=== PATIENT | male | born 1980 | race Caucasian/White ===

== ENCOUNTER 2018-04-24 15:07 | Emergency (ER) | payer OTHER ==
[2016-08-21 23:46] VITALS: BP 132/86
[2018-04-24] MEDS ORDERED: 0.9 % SODIUM CHLORIDE 1,000 ML IV ONE (15:31)
[2018-04-24] MEDS ORDERED: ONDANSETRON HCL/PF 4 MG/ 2ML VIAL ONE (15:31)
[2018-04-28 11:53] LABS: MEAN CORPUSCULAR HEMOGLOBIN 32.5 pg (28.0-34.0); MEAN CORPUSCULAR VOLUME 92.2 fl (80.0-100.0); eGFR (African) > 60; eGFR (Non-African) > 60
[2018-04-28 11:54] LABS: BASOPHILS % 1.2 (0.0-1.5); EOSINOPHILS % 3.2 % (0.0-6.8); MONOCYTES % 7.8 % (0.0-11.0); NEUTROPHILS # 8.4 # k/uL (1.4-7.7)
[2018-04-28 12:41] LABS: APPEARANCE,URINE CLOUDY (CLEAR); COLOR,URINE AMBER (YELLOW); OCCULT BLOOD,URINE 2+ (NEGATIVE); PH URINE 5.5 (5.0 - 8.0); UROBILINOGEN URINE 0.2 Eu (0.2-1.0)
== END 2018-04-24 16:55 ==
LOC: ED 15:07
DX: E86.0 Dehydration (principal)
CPT/HCPCS: 80053; 81002; 85025; J2405; J7030; 96360; 96361; 96375; 99284; S1016

== ENCOUNTER 2018-06-08 09:58 | Emergency (ER) | payer OTHER ==
--- NOTE | 2018-06-08 10:03 | ED Physician Documentation ---
General Adult - HISTORIAN Historian: patient - HPI Stated Complaint: cough up blood x 1 this am Chief Complaint: General Adult Onset: hours (3) Timing: gone now Severity: mild Further Comments: yes (states when he coughed this am he noted some blood in his sputum. No fever. No weakness. No chills. No bleeding in other areas. No blood thinners. No pain) - ROS CONST: no problems EYES/ENT: none CVS/RESP: none GI/: none MS/SKIN/LYMPH: none NEURO/PSYCH: denies: headache, fainting, dizziness - PAST HX Past History: none Other History: none Surgeries/Procedures: none Allergies/Adverse Reactions: Allergies Allergy/AdvReac Type Severity Reaction Status Date / Time No Known Drug Allergies Allergy Verified 06/08/18 10:16 - SOCIAL HX Smoking History: cigarettes Alcohol Use: none Drug Use: none - FAMILY HX Family History: No - VITAL SIGNS Vital Signs: Vital Signs Temp Pulse Resp BP Pulse Ox 132/86 08/21/16 23:35 - REVIEWED ASSESSMENTS Nursing Assessment Reviewed: Yes Vitals Reviewed: Yes ED Results Lab/Radiology - Radiology Radiology Impressions: Examination: PA and lateral chest. History: Evaluate lung gama. CXR, COUGHING UP BLOOD TODAY, NO CHEST PAIN, NO KNOWN INJURY (Hx) Comparison exam: None provided. Findings: PA lateral chest demonstrate a normal cardiac and mediastinal silhouette. No focal infiltrate. No blunting of the costophrenic margins. Acromioclavicular joint degenerative spurring. Impression: No acute pulmonary process. Electronically signed on Jun 08, 2018 11:10:20 AM CDT by: Santos Beyer General Adult Physical Exam - PHYSICAL EXAM GENERAL APPEARANCE: no distress EENT: eye inspection normal, ENT inspection normal NECK: normal inspection RESPIRATORY: no resp distress, chest non-tender, breath sounds normal CVS: reg rate & rhythm, heart sounds normal, equal pulses ABDOMEN: soft, normal bowel sounds, no distension SKIN: warm/dry, normal color EXTREMITIES: non-tender, normal range of motion, no evidence of injury, no edema NEURO: oriented X3, CN's nml as tested, motor nml, sensation nml Discharge Clincal Impression: Coughing up blood Referrals: Smith Cantu MD [Primary Care Provider] - 2 Days Additional Instructions: 1. STOP SMOKING 2. Warm salt water gargles 3. Increase fluid intake 4. Follow up with PCP in 2-4 days 5. Return to ER for any concerns Condition: Stable Disposition: 01 HOME, SELF-CARE Decision to Admit: NO Date of Decison to Admit: 06/08/18 Decision Time: 11:21
[2018-06-08 11:29] VITALS: BP 130/68
--- NOTE | 2018-06-08 18:14 | Diagnostic Imaging Report ---
XOCHITL FISHER [facility] [address] [facility] [address], [place]. [address] Report Submission Date: Jun 08, 2018 11:10:20 AM CDT Patient Study Name: KISHAN WESTON Date: Jun 08, 2018 10:31:39 AM CDT Modality Type: DX Gender: M Description: CHEST : 76 Institution: [facility] Physician: XOCHITL FISHER Examination: PA and lateral chest. History: Evaluate lung gama. CXR, COUGHING UP BLOOD TODAY, NO CHEST PAIN, NO KNOWN INJURY (Hx) Comparison exam: None provided. Findings: PA lateral chest demonstrate a normal cardiac and mediastinal silhouette. No focal infiltrate. No blunting of the costophrenic margins. Acromioclavicular joint degenerative spurring. Impression: No acute pulmonary process. Electronically signed on Jun 08, 2018 11:10:20 AM CDT by: Santos ANGEL
== END 2018-06-08 11:25 | disposition home or self-care (01) ==
LOC: ED 09:58
DX: R04.2 Hemoptysis (principal)
CPT/HCPCS: 71046; 99283

== ENCOUNTER 2018-11-20 10:59 | Emergency (ER) | payer OTHER ==
[2018-11-20] MEDS ORDERED: methylPREDNISolone SOD SUCC 125 MG/2 ML VIAL IM ONE (11:19)
--- NOTE | 2018-11-20 11:24 | ED Physician Documentation ---
Upper Respiratory Symptoms - HISTORIAN Historian: patient - HPI Stated Complaint: Cough, congestion Chief Complaint: Cough/ Upper Respiratory Additional Information: Patient presents to ED with a 2 day history of cough and sinus congestion. He denies fever, chills, night sweats or shortness of breath. Onset: days ago (2) Duration: constant Context: denies: recent foreign travel Severity: moderate Associated Symptoms: runny nose, sinus pain, sinus drainage, headache. denies: fever, chills, chest pain, shortness of breath - ROS CONST/EYES: denies: weakness CVS/RESP: denies: chest pain, shortness of breath LYMPH: denies: swollen glands GI/: denies: vomiting, nausea NEURO/PSYCH: denies: dizziness MS/SKIN: denies: muscle aches - PAST HX Lung Disease: none PE Risk Factors: hypertension Other History: denies: cancer chemo Surgeries/Procedures: denies: none Allergies/Adverse Reactions: Allergies Allergy/AdvReac Type Severity Reaction Status Date / Time No Known Drug Allergies Allergy Verified 11/20/18 11:15 Home Medications: Ambulatory Orders Medication Instructions Recorded Levofloxacin [Levaquin] 500 mg PO DAILY #5 tablet 11/20/18 predniSONE [Deltasone] 20 mg PO DIRECTED #6 tablet 11/20/18 - SOCIAL HX Smoking History: non-smoker, quit less than 1 year Alcohol Use: none Drug Use: none - FAMILY HX Family History: none - VITAL SIGNS Vital Signs: Vital Signs Temp Pulse Resp BP Pulse Ox 98.6 F 87 19 141/109 98 11/20/18 11:10 11/20/18 11:10 11/20/18 11:10 11/20/18 11:10 11/20/18 11:10 - REVIEWED ASSESSMENTS Nursing Assessment Reviewed: Yes Vitals Reviewed: Yes Upper Respiratory Symptoms - EXAM General Appearance: no acute distress, alert EENT: pain over sinuses, rhinorrhea, pharynx nml Neck: normal inspection Respiratory: no resp. distress, breath sounds nml Abdomen: non-tender CVS: reg rate & rhythm, heart sounds normal Skin: color nml, no rash, warm,dry Extremities: non-tender, no edema Neuro/Psych: oriented x3, mood/affect nml Discharge Clincal Impression: Upper respiratory infection, acute Referrals: Dixie Ruiz MD [Primary Care Provider] - 2 Days Additional Instructions: 1. Tylenol and/or Ibuprofen as needed for fever or pain. You may take these medications together at the same time for better pain control. 2. Add a daily antihistamine such as Claritin, Zyrtec, Xyxal, Allergra. Avoid taking the D version of these medications as they contain sudafed and will increase your blood pressure 3 Take Mucinex or Robutussin (both contain the same ingredient) to help with mucous thinning allowing you to clear your mucous easier. While taking these medications you must drink at least 64 ounces of water daily. 4. Use a cool mist humidifier with sleep 5. Afrin may be used for nasal congestion but do not use more than 3 days in a row. Nasal irrigation or nasal saline spray is helpful also. 6. Follow up with PCP within 3 days 7. Return to the ED with fever >102.0, difficulty breathing, chest pain or any new or worsening symptoms. Condition: Stable Disposition: 01 HOME, SELF-CARE Decision to Admit: NO Date of Decison to Admit: 11/20/18 Decision Time: 11:31
[2018-11-20 11:51] VITALS: BP 132/88
== END 2018-11-20 11:50 | disposition home or self-care (01) ==
LOC: ED 10:59
DX: J06.9 Acute upper respiratory infection, unspecified (principal); Z87.891 Personal history of nicotine dependence
CPT/HCPCS: 96372; 99282; 99284; J2930

== ENCOUNTER 2018-12-31 05:10 | Emergency (ER) | payer OTHER ==
[2018-12-31 05:23] VITALS: BP 124/87
--- NOTE | 2018-12-31 05:41 | ED Physician Documentation ---
General Adult - HPI Stated Complaint: COUGH Chief Complaint: General Adult Onset: days ago Timing: still present Severity: moderate Further Comments: yes (Pt is a 38 yo male with cough/congestion x 3 days. Pt had a sore throat earlier in course of illness. No n/v/diarrhea/fever.) - ROS CONST: no problems EYES/ENT: sore throat CVS/RESP: cough GI/: none MS/SKIN/LYMPH: none - PAST HX Past History: hypertension Allergies/Adverse Reactions: Allergies Allergy/AdvReac Type Severity Reaction Status Date / Time No Known Drug Allergies Allergy Verified 12/31/18 05:24 - SOCIAL HX Smoking History: quit greater than 1 year - FAMILY HX Family History: No - VITAL SIGNS Vital Signs: Vital Signs Temp Pulse Resp BP Pulse Ox 97.6 F 98 H 20 124/87 98 12/31/18 05:20 12/31/18 05:20 12/31/18 05:20 12/31/18 05:20 12/31/18 05:20 - REVIEWED ASSESSMENTS Nursing Assessment Reviewed: Yes Vitals Reviewed: Yes Progress - Progress Progress: Azithromycin 500 mg po in ER Sollu-medrol 125 mg IM in ER. Rx Azithromycin 250 mg. Take one by mouth once daily for 5 days. Rx Prednisone 50 mg. Take one by mouth once daily for 5 days. Nasal Washes 1-2 times daily. General Adult Physical Exam - PHYSICAL EXAM GENERAL APPEARANCE: mild distress EENT: eye inspection normal, ENT inspection normal, pharyngeal erythema NECK: normal inspection, supple RESPIRATORY: no resp distress, breath sounds normal CVS: reg rate & rhythm, heart sounds normal ABDOMEN: soft, no organomegaly, normal bowel sounds BACK: normal inspection SKIN: warm/dry, normal color EXTREMITIES: non-tender, normal range of motion, no evidence of injury NEURO: oriented X3, motor nml, sensation nml Discharge Clincal Impression: cough/congestion URI (upper respiratory infection) Qualifiers: URI type: unspecified URI Qualified Code(s): J06.9 - Acute upper respiratory infection, unspecified Referrals: Dixie Ruiz MD [Primary Care Provider] - Condition: Good Disposition: 01 HOME, SELF-CARE Decision to Admit: NO Decision Time: 06:26
[2018-12-31] MEDS ORDERED: methylPREDNISolone SOD SUCC 125 MG/2 ML VIAL IM ONE (05:45)
[2018-12-31] MEDS ORDERED: AZITHROMYCIN 250 MG TABLET PO ONE (06:03)
== END 2018-12-31 06:30 | disposition home or self-care (01) ==
LOC: ED 05:10
DX: J06.9 Acute upper respiratory infection, unspecified (principal); R05 Cough; R09.81 Nasal congestion; Z87.891 Personal history of nicotine dependence
CPT/HCPCS: 96372; 99283; J2930

== ENCOUNTER 2019-02-06 10:00 | Outpatient (CLI) | payer OTHER ==
[2019-02-02 16:28] VITALS: BP 154/111
[2019-02-06 11:02] LABS: eGFR (Non-African) > 60
[2019-02-06 11:03] LABS: BASOPHILS % 4.1 (0.0-1.5); MEAN CORPUSCULAR HEMOGLOBIN 31.9 pg (28.0-34.0); MONOCYTES % 10.1 % (0.0-11.0); NEUTROPHILS # 3.9 # k/uL (1.4-7.7)
--- NOTE | 2019-02-06 12:53 | Diagnostic Imaging Report ---
KEESHA MCDONALD [facility] [address] [facility].[address] [address] Report Submission Date: Feb 06, 2019 12:52:09 PM CDT Patient Study Name: KISHAN WESTON Date: Feb 06, 2019 10:24:29 AM CDT Modality Type: DX Gender: M Description: L SPINE 2 OR 3 VIEWS : 76 Institution: [facility] Physician: KEESHA MCDONALD Examination: Plain film lumbar spine History: Chronic back pain. hx of physical lifting at work. Findings: 3 views of the lumbar spine demonstrate normal height. No anterior compression. Few scattered osteophytes. Mild L5-S1 disc space narrowing. No soft tissue abnormalities. Impression: Mild degenerative changes. No vertebral body compression deformity. If patient is experiencing neurologic symptoms, consider obtaining MRI to further evaluate. Electronically signed on Feb 06, 2019 12:52:09 PM CDT by: Santos ANGEL
== END 2019-02-06 10:03 ==
LOC: LAB 10:00
PROVIDERS: ATTEND Family Medicine
DX: M54.42 Lumbago with sciatica, left side (principal); G62.9 Polyneuropathy, unspecified
CPT/HCPCS: 36415; 72100; 80053; 82607; 82746; 84443; 85025

== ENCOUNTER 2019-02-15 09:22 | Emergency (ER) | payer OTHER ==
[2019-02-15 09:39] VITALS: BP 142/100
[2019-02-15] MEDS ORDERED: methylPREDNISolone SOD SUCC 125 MG/2 ML VIAL IM ONE (09:49)
[2019-02-15] MEDS ORDERED: KETOROLAC TROMETHAMINE 60 MG/2 ML VIAL IM ONE (09:49)
--- NOTE | 2019-02-15 09:53 | ED Physician Documentation ---
Low Back Pain - HISTORIAN Historian: patient - HPI Stated Complaint: Back pain Chief Complaint: Low Back Pain/ Injury Additional Information: Patient presents to ED with ongoing low back pain with radiation to right thigh. Patient rates his pain 08/17. He has seen Dr. Ruiz and has an ortho appointment on February 27. An MRI was scheduled by Dr. Ruiz, however, insurance did not approve it. Patient denies loss of bowel or bladder control. History: back pain Onset: days ago (14) Duration: continues in ED Recent Injury: No Context: bending, other (standing) Where: work Severity: severe Quality: burning, sharp, similar- prior back pain Associated Symptoms: denies: fever, nausea, vomiting Worsened By:: upright position Relieved By: supine, remaining still - ROS CONST: no problems CVS/RESP: none EYES/ENT: none MS/SKIN/LYMPH: none Neuro/Psych: none GI/: denies: abdominal pain - PAST HX Past History: back pain Surgeries/Procedures: none Allergies/Adverse Reactions: Allergies Allergy/AdvReac Type Severity Reaction Status Date / Time No Known Drug Allergies Allergy Verified 02/02/19 14:42 Home Medications: Ambulatory Orders Medication Instructions Recorded Baclofen 10 mg PO BID PRN #30 tablet 02/15/19 predniSONE [Deltasone] 20 mg PO DIRECTED #26 tablet 02/15/19 - SOCIAL HX Smoking History: non-smoker Alcohol Use: none Drug Use: none - FAMILY HX Family History: none - VITAL SIGNS Vital Signs: Vital Signs Temp Pulse Resp BP Pulse Ox 92 H 15 142/100 97 02/15/19 12:00 02/15/19 12:00 02/15/19 12:00 02/15/19 12:00 - REVIEWED ASSESSMENTS Nursing Assessment Reviewed: Yes Vitals Reviewed: Yes ED Results Lab/Radiology - Radiology Radiology Impressions: Report Submission Date: Feb 15, 2019 11:30:20 AM CDT Patient Study Name: KISHAN WESTON Date: Feb 15, 2019 10:29:25 AM CDT Modality Type: CT\SR Gender: M Description: CT L-SPINE W/O CONTRAS : 76 Institution: [facility] Physician: JESÚS WALSH EXAMINATION: CT L-SPINE W/O CONTRAS HISTORY: LOW BACK PAIN, RADIATING TO RT LEG. PT STATES PAIN HAS BEEN GOING ON FOR SEVERAL MONTHS AND HAS WORSENED IN THE LAST MONTH TECHNIQUE: CT of the lumbar spine was performed without contrast according to standard protocol. COMPARISON: None FINDINGS: The alignment is normal. Vertebral bodies are normal in height without evidence of acute fracture. There is mild intervertebral disc space narrowing at L5-S1. There is minimal atherosclerosis of the aorta. L1-L2: There is no disc bulge. There is no spinal canal stenosis. There is no facet osteoarthritis. There is no neural foraminal stenosis. L2-L3: There is no disc bulge. There is no spinal canal stenosis. There is no facet osteoarthritis. There is no neural foraminal stenosis. L3-L4: Minimal disc bulge. There is no spinal canal stenosis. There is no facet osteoarthritis. There is no neural foraminal stenosis. L4-L5: Mild disc bulge, asymmetric to the left. There is no spinal canal stenosis. There is no facet osteoarthritis. There is mild, left greater than right, neural foraminal stenosis. L5-S1: Posterior disc osteophyte complex. There is no spinal canal stenosis. There is mild facet osteoarthritis. There is moderate neural foraminal stenosis. IMPRESSION: 1. No evidence of acute fracture in the lumbar spine. 2. Lumbar degenerative disc and joint disease as described above. Electronically signed on Feb 15, 2019 11:30:20 AM CDT by: Jc Nickerson - Orders Orders: ED Orders Category Date Time Status CT L-SPINE W/O CONTRAST Stat Exams 02/15/19 Completed Ketorolac Tromethamine [Toradol] Med 02/15/19 09:49 Discontinued 60 mg IM NOW ONE methylPREDNISolone SOD SUCC [Solu-MEDROL] Med 02/15/19 09:49 Discontinued 125 mg IM NOW ONE Low Back Pain/Injury - Physical Exam General Appearance: no acute distress, alert EENT: JERALD Neck: non-tender, painless ROM Resp/CVS: chest non-tender, breath sounds nml, heart sounds nml, no resp. distress, reg. rate & rhythm Abdomen: non-tender Back: vertebral point-tendernes (L4-S1) Straight Leg Raising: Positive Right Neuro/Psych: oriented x3, motor nml Skin: warm/dry Extremities: non-tender, normal range of motion, no edema Discharge Clincal Impression: Lumbar disc disease with radiculopathy Prescriptions: Baclofen 10 mg PO BID PRN #30 tablet PRN Reason: muscle spasm/back pain predniSONE [Deltasone] 20 mg PO DIRECTED #26 tablet Referrals: Dixie Ruiz MD [Primary Care Provider] - 2 Days Additional Instructions: 1. Start Prednsione tomorrow. 2. Take muscle relaxers as needed for pain/spasms. This medication will make you drowsy. 3. Follow up with Dr. Ruiz within 1 week 4. Follow up with Ortho as scheduled on February 27, 2019 5. Return to ER for new or worsening symptoms Condition: Stable Decision to Admit: NO Date of Decison to Admit: 02/15/19 Decision Time: 11:40
--- NOTE | 2019-02-15 13:15 | Diagnostic Imaging Report ---
<p>Your browser does not support iframes.</p> JESÚS WALSH [facility] [address] [facility] [address] [place], [place]. [address] Report Submission Date: Feb 15, 2019 11:30:20 AM CDT Patient Study Name: KISHAN WESTON Date: Feb 15, 2019 10:29:25 AM CDT Modality Type: CT\SR Gender: M Description: CT L-SPINE W/O CONTRAS : 76 Institution: [facility] Physician: JESÚS WALSH EXAMINATION: CT L-SPINE W/O CONTRAS HISTORY: LOW BACK PAIN, RADIATING TO RT LEG. PT STATES PAIN HAS BEEN GOING ON FOR SEVERAL MONTHS AND HAS WORSENED IN THE LAST MONTH TECHNIQUE: CT of the lumbar spine was performed without contrast according to standard protocol. COMPARISON: None FINDINGS: The alignment is normal. Vertebral bodies are normal in height without evidence of acute fracture. There is mild intervertebral disc space narrowing at L5-S1. There is minimal atherosclerosis of the aorta. L1-L2: There is no disc bulge. There is no spinal canal stenosis. There is no facet osteoarthritis. There is no neural foraminal stenosis. L2-L3: There is no disc bulge. There is no spinal canal stenosis. There is no facet osteoarthritis. There is no neural foraminal stenosis. L3-L4: Minimal disc bulge. There is no spinal canal stenosis. There is no facet osteoarthritis. There is no neural foraminal stenosis. L4-L5: Mild disc bulge, asymmetric to the left. There is no spinal canal stenosis. There is no facet osteoarthritis. There is mild, left greater than right, neural foraminal stenosis. L5-S1: Posterior disc osteophyte complex. There is no spinal canal stenosis. There is mild facet osteoarthritis. There is moderate neural foraminal stenosis. IMPRESSION: 1. No evidence of acute fracture in the lumbar spine. 2. Lumbar degenerative disc and joint disease as described above. Electronically signed on Feb 15, 2019 11:30:20 AM CDT by: Jc ANGEL
== END 2019-02-15 12:00 ==
LOC: ED 09:22
DX: M51.16 Intervertebral disc disorders with radiculopathy, lumbar region (principal)
CPT/HCPCS: 72131; 96372; 99283; 99284; J1885; J2930

== ENCOUNTER 2019-03-19 01:50 | Emergency (ER) | payer OTHER ==
[2019-03-19] MEDS ORDERED: methylPREDNISolone SOD SUCC 125 MG/2 ML VIAL IM ONE (02:18)
--- NOTE | 2019-03-19 02:18 | ED Physician Documentation ---
Skin Rash - HPI Stated Complaint: "I have this rash on my hands/arms" Chief Complaint: Skin Rash Additional Information: Patient presents to ED with rash to forearms and hand since Wednesday. Patient states he explored an old house on Wednesday and his rash started Wednesday night. Onset: days ago (3) Timing: still present Duration: worse Location: RUE, LUE Quality: itchy Where: home Context: Medication Exposure: none Context: Food Exposure: none Context: Other Exposure: other - ROS CONST: none CVS/RESP: none EYES/ENT: none GI/: none MS/SKIN/LYMPH: none NEURO/PSYCH: none - PAST HX Past History: hypertension Other History: none Allergies/Adverse Reactions: Allergies Allergy/AdvReac Type Severity Reaction Status Date / Time No Known Drug Allergies Allergy Verified 03/19/19 02:06 Home Medications: Ambulatory Orders Medication Instructions Recorded Baclofen 10 mg PO BID PRN #30 tablet 02/15/19 predniSONE [Deltasone] 10 mg PO DIRECTED #15 tablet 03/19/19 - SOCIAL HX Smoking History: non-smoker Alcohol Use: none Drug Use: none - FAMILY HX Family History: none - VITAL SIGNS Vital Signs: Vital Signs Temp Pulse Resp BP Pulse Ox 98.2 F 99 H 16 163/99 99 03/19/19 01:55 03/19/19 01:55 03/19/19 01:55 03/19/19 01:55 03/19/19 01:55 - REVIEWED ASSESSMENTS Nursing Assessment Reviewed: Yes Vitals Reviewed: Yes Skin Rash Physical Exam - EXAM General Appearance: no acute distress, alert Skin: warm,dry Location: extremities Character: urticarial, erythematous Symptoms: thickening, well defined border, weeping Extremities: non-tender EENT: eyes nml inspection Respiratory: no resp distress CVS: reg. rate & rhythm Abdomen: non-tender, nml bowel sounds Neuro/Psych: oriented x3, motor nml, mood/affect nml Discharge Clincal Impression: Contact dermatitis Qualifiers: Contact dermatitis type: allergic Contact dermatitis trigger: unspecified trigger Qualified Code(s): L23.9 - Allergic contact dermatitis, unspecified cause Referrals: Dixie Ruiz MD [Primary Care Provider] - 2 Days Additional Instructions: 1. Apply topical benedryl as needed for itch 2. Use oral Benedryl as needed for itch 3. Take Prednisone as directed. If rash worsens significantly over the next 36-48 hours stop taking Prednisone immediately 4. If you stop taking the Prednisone due to worsening rash then start applying Ketoconazole 5. Follow up with PCP within 1 week 6. Return to ER for new or worsening symptoms Condition: Stable Disposition: 01 HOME, SELF-CARE Decision to Admit: NO Date of Decison to Admit: 03/19/19 Decision Time: 02:30
[2019-03-19] MEDS ORDERED: diphenhydrAMINE HCL 25 MG TABLET PO ONE (02:19)
[2019-03-19 02:52] VITALS: BP 157/82
== END 2019-03-19 02:40 | disposition home or self-care (01) ==
LOC: ED 01:50
DX: L23.9 Allergic contact dermatitis, unspecified cause (principal)
CPT/HCPCS: 96372; 99283; J2930; Q0163

== ENCOUNTER 2019-07-19 16:23 | Outpatient (CLI) | payer OTHER | END 2019-07-19 16:25 | LOC: LAB 16:23 | PROVIDERS: ATTEND Family Medicine | DX: R53.83 Other fatigue (principal); N52.9 Male erectile dysfunction, unspecified | CPT/HCPCS: 36415; 84402 ==

== ENCOUNTER 2019-09-12 11:47 | Outpatient (CLI) | payer OTHER ==
--- NOTE | 2019-09-12 15:20 | Diagnostic Imaging Report ---
PATIENT MR#: [id number] PATIENT PATIENT NAME: KISHAN WESTON DATE OF : 1980 REFERRING PHYSICIAN: Laurie Be EXAM DATE: 09/12/2019 ACCESSION NUMBER: [id number] EXAM DESCRIPTION: US ABDOMEN LIMITED CLINICAL HISTORY: Left lower quadrant pain with Valsalva. Clinical concern for inguinal hernia. COMPARISON: No study for comparison is available at the time of interpretation. TECHNIQUE: US limited abdomen, left inguinal, with contralateral comparison Focused ultrasound was performed in the region of concern in the left lower quadrant. The underlying soft tissues appear normal. No inguinal hernia, cystic or solid masses were identifie d by the human performance technologist. IMPRESSION: No evidence of inguinal hernia. Read by: Dr. Acosta Araujo Transcribed by: Acosta Araujo Transcribed Date: 09/12/2019 3:19:50 PM Electronically signed by: Dr. Acosta Araujo Date signed: 09/12/2019 3:19:50 PM
== END 2019-09-12 11:57 ==
LOC: RAD 11:47
PROVIDERS: ATTEND Nurse Practitioner Family
DX: K46.9 Unspecified abdominal hernia without obstruction or gangrene (principal)
CPT/HCPCS: 76705